=== PATIENT | male | born 1990 | race African-American/Black ===

== ENCOUNTER 2017-10-21 09:30 | Emergency (ER) | payer OTHER ==
[2017-10-21 09:38] VITALS: BP 141/84; PULSE 66; TEMP 98.2; BMI 20.7
[2017-10-21] MEDS ORDERED: DIPHTH,PERTUSS(ACELL),TET 0.5 ML DISP.SYRIN IM ONE (11:19)
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
== END 2017-10-21 11:26 | disposition home or self-care (01) ==
LOC: JER 09:30
PROC: 3E0234Z Introduction of Serum, Toxoid and Vaccine into Muscle, Percutaneous Approach (ICD-10-PCS; principal; 2017-10-21)
DX: S60.511A Abrasion of right hand, initial encounter (principal); V43.52XA Car driver injured in collision with other type car in traffic accident, initial encounter; Y93.89 Activity, other specified; Y92.410 Unspecified street and highway as the place of occurrence of the external cause
CPT/HCPCS: 90715; 99281-25

== ENCOUNTER 2018-02-11 12:55 | Emergency (ER) | payer SELFPAY ==
[2018-02-11 13:09] VITALS: BP 119/84; PULSE 67; TEMP 98.9; BMI 21.4
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
== END 2018-02-11 15:56 | disposition home or self-care (01) ==
LOC: JERFT 12:55
DX: N50.82 Scrotal pain (principal); Y04.0XXA Assault by unarmed brawl or fight, initial encounter; Y92.9 Unspecified place or not applicable; Y93.9 Activity, unspecified
CPT/HCPCS: 76870-TC; 99281-25

== ENCOUNTER 2021-05-01 07:27 | Emergency (ER) | payer OTHER ==
[2021-05-01 08:02] VITALS: BP 128/85; PULSE 78; TEMP 96.3; BMI 20.7
== END 2021-05-01 09:05 | disposition home or self-care (01) ==
LOC: JER 07:27 → JERFT 07:27
DX: S61.411A Laceration without foreign body of right hand, initial encounter (principal); W26.8XXA Contact with other sharp object(s), not elsewhere classified, initial encounter
CPT/HCPCS: 99282-25

== ENCOUNTER 2022-01-12 17:38 | Emergency (ER) | payer OTHER ==
[2022-01-12 17:43] VITALS: BP 106/63; PULSE 83; RESP 18; TEMP 98.8; BMI 20.7
== END 2022-01-12 21:20 | disposition home or self-care (01) ==
LOC: JER 17:38
DX: U07.1 COVID-19 (principal)
CPT/HCPCS: 0241U-QW; 99283-25